=== PATIENT | male | born 1960 ===

== ENCOUNTER 2018-10-10 11:29 | Emergency (ER) | payer BC, OTHER ==
--- NOTE | 2018-10-10 12:16 | EDM.PDOC ---
ED HPI GENERAL MEDICAL PROBLEM - General Chief Complaint: Cardiovascular Problem Stated Complaint: HIGH BLOOD PRESSURE Time Seen by Provider: 10/10/18 11:48 Source of Information: Reports: Patient History Limitations: Reports: No Limitations - History of Present Illness INITIAL COMMENTS - FREE TEXT/NARRATIVE: Presents reporting high blood pressure. The patient states that yesterday last evening and again today he felt some ringing in his ears and head fullness. He has never had high blood pressure but some friends told him that that is the way it feels when your blood pressure goes up. Thus, he was at the local grocery store this morning and checked his blood pressure on a machine there. It was 185/91 so he decided to come on in and get checked out. He has not had any regular medical care for some time except that he was diagnosed with melanoma about 5 years ago, had some surgery and goes for a checkup for that each year. He has never been hypertensive on those occasions. He states his symptoms have pretty much resolved now although he has a little pressure in his head "like a cold". He does drink 20 ounces of coffee every morning. Currently he states the pressure feeling is "a caffeine headache feel". He denies focal weakness, chest pain, shortness of breath, nausea, diaphoresis, visual symptoms. chest Pain Score (Numeric/FACES): 1 - Related Data Allergies Allergy/AdvReac Type Severity Reaction Status Date / Time Penicillins Allergy Swelling Verified 10/10/18 11:32 Home Meds: Home Meds Lisinopril/Hydrochlorothiazide [Lisinopril-HCTZ 10-12.5 MG] 1 tab PO DAILY #10 tablet 10/10/18 [Rx] Past Medical History HEENT History: Reports: None Cardiovascular History: Reports: None Respiratory History: Reports: None Gastrointestinal History: Reports: None Genitourinary History: Reports: None Musculoskeletal History: Reports: None Neurological History: Reports: None Psychiatric History: Reports: None Endocrine/Metabolic History: Reports: None Hematologic History: Reports: None Immunologic History: Reports: None Oncologic (Cancer) History: Reports: Malignant Melanoma Dermatologic History: Reports: None - Past Surgical History Head Surgeries/Procedures: Reports: None HEENT Surgical History: Reports: VIRIDIANAIK Cardiovascular Surgical History: Reports: None Respiratory Surgical History: Reports: None GI Surgical History: Reports: None Male Surgical History: Reports: None Endocrine Surgical History: Reports: None Neurological Surgical History: Reports: None Musculoskeletal Surgical History: Reports: None Oncologic Surgical History: Reports: None Dermatological Surgical History: Reports: None Social & Family History - Family History Family Medical History: Noncontributory - Tobacco Use Smoking Status *Q: Never Smoker Second Hand Smoke Exposure: No - Caffeine Use Caffeine Use: Reports: None - Recreational Drug Use Recreational Drug Use: No ED ROS GENERAL - Review of Systems Review Of Systems: ROS reveals no pertinent complaints other than HPI. ED EXAM, GENERAL - Physical Exam Exam: See Below Exam Limited By: No Limitations General Appearance: Alert, No Apparent Distress Ears: Normal External Exam Nose: Normal Inspection Throat/Mouth: Normal Inspection Head: Atraumatic, Normocephalic Neck: Normal Inspection Respiratory/Chest: No Respiratory Distress, Lungs Clear, Normal Breath Sounds Cardiovascular: Normal Peripheral Pulses, Regular Rate, Rhythm, No Edema, No Murmur Back Exam: Normal Inspection Extremities: Normal Inspection Neurological: Alert, Oriented, CN II-XII Intact, Normal Cognition, Normal Gait, No Motor/Sensory Deficits Psychiatric: Normal Affect, Normal Mood Skin Exam: Warm, Dry, Intact, Normal Color, No Rash Lymphatic: No Adenopathy Course - Vital Signs Last Recorded V/S: Last Vital Signs Temp 36.4 C 10/10/18 11:32 Pulse 55 L 10/10/18 11:32 Resp 18 10/10/18 11:32 BP 137/91 H 10/10/18 11:52 Pulse Ox 96 10/10/18 11:32 - Orders/Labs/Meds Orders: Active Orders 24 hr Category Date Time Status EKG Documentation Completion [RC] STAT Care 10/10/18 12:08 Active Labs: Laboratory Tests 10/10/18 10/10/18 10/10/18 Range/Units 11:50 11:50 11:50 WBC 4.73 (4.0-11.0) K/uL RBC 4.80 (4.50-5.90) M/uL Hgb 14.6 (13.0-17.0) g/dL Hct 43.0 (38.0-50.0) % MCV 89.6 (80.0-98.0) fL MCH 30.4 (27.0-32.0) pg MCHC 34.0 (31.0-37.0) g/dL RDW Std Deviation 43.3 (28.0-62.0) fl RDW Coeff of Nola 13 (11.0-15.0) % Plt Count 218 (150-400) K/uL MPV 9.80 (7.40-12.00) fL Neut % (Auto) 58.8 (48.0-80.0) % Lymph % (Auto) 31.7 (16.0-40.0) % [place] % (Auto) 5.9 (0.0-15.0) % Eos % (Auto) 3.4 (0.0-7.0) % Baso % (Auto) 0.2 (0.0-1.5) % Neut # (Auto) 2.8 (1.4-5.7) K/uL Lymph # (Auto) 1.5 (0.6-2.4) K/uL [place] # (Auto) 0.3 (0.0-0.8) K/uL Eos # (Auto) 0.2 (0.0-0.7) K/uL Baso # (Auto) 0.0 (0.0-0.1) K/uL Nucleated RBC % 0.0 /100WBC Nucleated RBCs # 0 K/uL Sodium 142 (136-148) mmol/L Potassium 4.2 (3.5-5.1) mmol/L Chloride 107 (98-107) mmol/L Carbon Dioxide 27.9 (21.0-32.0) mmol/L BUN 19 H (7.0-18.0) mg/dL Creatinine 1.1 (0.8-1.3) mg/dL Est Cr Clr Drug Dosing 71.41 mL/min Estimated GFR (MDRD) > 60.0 ml/min Glucose 93 (74-106) mg/dL Calcium 9.2 (8.5-10.1) mg/dL Total Bilirubin 0.6 (0.2-1.0) mg/dL AST 23 (15-37) IU/L ALT 29 (14-63) IU/L Alkaline Phosphatase 64 (46-116) U/L Troponin I < 0.050 (0.000-0.056) ng/mL Total Protein 7.1 (6.4-8.2) g/dL Albumin 4.1 (3.4-5.0) g/dL Globulin 3.0 (2.6-4.0) g/dL Albumin/Globulin Ratio 1.4 (0.9-1.6) - Re-Assessments/Exams Free Text/Narrative Re-Assessment/Exam: 10/10/18 13:05 The patient states that he is traveling back to his home in [place] and will be there within the week. He will see a regular medical doctor there to have his blood pressure evaluated. Free Text/Narrative Re-Assessment/Exam: 10/10/18 13:06 The blood pressure initial presentation to the ER was 202/107 but by the end of the initial assessment was 137/80. Additional blood pressure measurements in the ER were 160/88 and 154/81 and 138/78 without treatment. Departure - Departure Time of Disposition: 13:06 Disposition: Home, Self-Care 01 Condition: Good Clinical Impression: Hypertension Prescriptions: Lisinopril/Hydrochlorothiazide [Lisinopril-HCTZ 10-12.5 MG] 1 tab PO DAILY #10 tablet Forms: ED Department Discharge Additional Instructions: 1. Follow-up with your primary provider back in [place] as soon as you arrive 2. Take your blood pressure medication daily as discussed 3. Poor to the ER promptly for headache, chest pain, visual symptoms, new or worrisome symptoms. - My Orders Last 24 Hours: My Active Orders 10/10/18 12:08 EKG Documentation Completion [RC] STAT - Assessment/Plan Last 24 Hours: My Active Orders 10/10/18 12:08 EKG Documentation Completion [RC] STAT
[2018-10-10 12:40] LABS: CHLORIDE,CL 107 mmol/L (98-107); SODIUM,NA 142 mmol/L (136-148)
== END 2018-10-10 13:25 | disposition home or self-care (01) ==
LOC: MW.ED 11:29
DX: I10 Essential (primary) hypertension (principal); Z88.0 Allergy status to penicillin; Z79.899 Other long term (current) drug therapy
CPT/HCPCS: 36415; 80053; 84484; 85025; 93005; 99284-25